=== PATIENT | male | born 1980 | race Two or more races ===

== ENCOUNTER 2018-04-16 10:11 | Emergency (ER) | payer SELFPAY ==
[2018-04-16 11:53] VITALS: BP 129/79
--- NOTE | 2018-04-16 12:40 | UC ---
Ear Complaint HPI - HPI Summary HPI Summary: 37-year-old male no past medical history presents with episode of left ear pain for approximately 3-4 days, gradual onset, worsening today, associated clear discharge from the left ear. Denies any changes in hearing. No prior episodes. No fevers, mild maxillary pain on the left. No vomiting, no changes in vision. No blurry vision. - History of Current Complaint Chief Complaint: UCEar Stated Complaint: LEFT EAR COMPLAINT Pain Intensity: 6 - Allergies/Home Medications Allergies/Adverse Reactions: Allergies Allergy/AdvReac Type Severity Reaction Status Date / Time No Known Allergies Allergy Verified 04/16/18 11:53 PMH/Surg Hx/FS Hx/Imm Hx - Additional Past Medical History Additional PMH: Patient denies any past medical history Previously Healthy: Yes - Surgical History Surgical History: None - Social History Alcohol Use: None Substance Use Type: None Smoking Status (MU): Never Smoked Tobacco Review of Systems Constitutional: Negative Skin: Negative Eyes: Negative ENT: Ear Ache Respiratory: Negative Cardiovascular: Negative Gastrointestinal: Negative Musculoskeletal: Negative Neurological: Negative All Other Systems Reviewed And Are Negative: Yes Physical Exam - Summary Physical Exam Summary: Gen: alert, in no acute distress HEENT: Left-sided TM shows purulent drainage obscuring L TM. No mastoid swelling or tenderness. No vesicular or petechial lesions Neck: supple, no masses CV: Normal s1 s2, no murmurs Resp: normal breath sounds b/l GI: no tenderness, no masses Musculoskeletal: normal ROM all 4 extremities Neuro: no obvious focal neurological deficits, no facial abnormalities, cranial nerves 2-12 intact bilaterally Skin: no rash Lymph: + L tender cervical lymphadenopathy Psych: appropriate affect, oriented Triage Information Reviewed: Yes Vital Signs: Initial Vital Signs Temp 36.9 C 04/16/18 11:47 Pulse 70 04/16/18 11:47 Resp 18 04/16/18 11:47 BP 129/79 04/16/18 11:47 Pulse Ox 100 04/16/18 11:47 Ear Complaint Course/Dx - Course Course Of Treatment: Patient started on otic and oral antibiotic therapy, instructed to follow up with ENT if he notices no improvement over the next 2 days. Intact hearing, agrees to and understands discharge instructions. - Differential Dx/Diagnosis Provider Diagnoses: L otitis externa/media Discharge - Sign-Out/Discharge Documenting (check all that apply): Patient Departure All imaging exams completed and their final reports reviewed: No Studies - Discharge Plan Condition: Stable Disposition: HOME Prescriptions: Amoxicillin PO (*) [Amoxicillin 875 MG (*)] 875 mg PO BID 10 Days #20 tab Neomycin/Polymyxin B/Hydrocort [Ssihkmkl-Yhzswjaev-Yr Ear Susp] 4 drop OT BID # 1 bottle Patient Education Materials: Otitis Externa (DC) Print Language: ENGLISH Referrals: Dano Hogan MD [Medical Doctor] - Additional Instructions: POR FAVOR ALLYSON NICO ALLAN CON UN DOCTOR ENT SI NO MEJORA EN 3-4 BELL POR FAVOR, VISITE LA [facility] EMERGENCI[facility] PARA CUALQUIER SNTOMAS EMERGENTES - Billing Disposition and Condition Condition: STABLE Disposition: Home
== END 2018-04-16 12:50 | disposition home or self-care (01) ==
LOC: UCCORT 10:11
DX: H60.92 Unspecified otitis externa, left ear (principal); H66.92 Otitis media, unspecified, left ear
CPT/HCPCS: 99202; G0463